=== PATIENT | female | born 1930 | race Caucasian/White ===

== ENCOUNTER 2016-03-13 10:25 | Emergency (ER) | payer MEDICARE, BC ==
[2016-03-13] MEDS ORDERED: SODIUM CHLORIDE 0.9% 500 ML IV STA (10:57)
[2016-03-13] MEDS ORDERED: SODIUM CHLORIDE 0.9% 1,000 ML IV STA (10:57)
--- NOTE | 2016-03-13 11:00 | ED ---
General Adult HPI - General Chief complaint: Weakness Stated complaint: weakness Time Seen by Provider: 03/13/16 10:46 Source: patient, RN notes reviewed Mode of arrival: wheelchair Limitations: no limitations - History of Present Illness Initial comments: Patient is a pleasant 85-year-old female presenting to the emergency Department complaining of generalized weakness. Symptoms have progressed over the past week. Patient is on radiation treatment for nasal cancer. Patient had to interrupt this secondary to depth involvement abuse infection and has not been eating well for the past week. Patient does admit to feeling somewhat generally weak all over. Patient went in to resume her treatments today and was told her blood pressure was low and advised to come to the emergency department. No confusion. No isolated area of weakness. - Related Data Home Medications Medication Instructions Recorded Confirmed Atorvastatin Calcium [Lipitor] 20 mg PO HS 03/13/16 03/13/16 Fluconazole [Diflucan] 100 mg PO DAILY 03/13/16 03/13/16 Levothyroxine Sodium [Synthroid] 25 mcg PO DAILY 03/13/16 03/13/16 Multivitamins, Thera [Multivitamin] 1 tab PO DAILY 03/13/16 03/13/16 Allergies Allergy/AdvReac Type Severity Reaction Status Date / Time No Known Allergies Allergy Verified 03/13/16 10:43 Review of Systems ROS Statement: Those systems with pertinent positive or pertinent negative responses have been documented in the HPI. ROS Other: All systems not noted in ROS Statement are negative. Constitutional: Denies: fever Eyes: Denies: eye pain ENT: Denies: ear pain Respiratory: Denies: cough, dyspnea Cardiovascular: Denies: chest pain Endocrine: Reports: fatigue Gastrointestinal: Denies: abdominal pain Genitourinary: Denies: dysuria Musculoskeletal: Denies: back pain Skin: Denies: rash Neurological: Reports: weakness Past Medical History Past Medical History: Cancer, Hypertension, Thyroid Disorder History of Any Multi-Drug Resistant Organisms: None Reported Past Surgical History: Hernia Repair Past Psychological History: No Psychological Hx Reported Smoking Status: Former smoker Past Alcohol Use History: None Reported Past Drug Use History: None Reported General Exam Limitations: no limitations General appearance: alert, in no apparent distress Head exam: Present: atraumatic Eye exam: Present: normal appearance, PERRL ENT exam: Present: other (Mild white patches on the tongue.) Neck exam: Present: normal inspection Respiratory exam: Present: normal lung sounds bilaterally Cardiovascular Exam: Present: regular rate, normal rhythm GI/Abdominal exam: Present: soft. Absent: tenderness Extremities exam: Present: normal inspection Neurological exam: Present: alert, CN II-XII intact. Absent: motor sensory deficit Expanded Speech: Present: fluid speech Cranial nerves: EOM's Intact: Normal Motor strength exam: RUE: 5, LUE: 5, RLE: 5, LLE: 5 Eye Response: (4) open spontaneously Motor Response: (6) obeys commands Verbal Response: (5) oriented Psychiatric exam: Present: normal affect, normal mood Skin exam: Absent: rash Course Vital Signs 03/13/16 03/13/16 03/13/16 10:27 11:10 11:50 Temperature 97.8 F Pulse Rate 94 90 Respiratory 20 18 Rate Blood Pressure 95/55 112/62 145/67 O2 Sat by Pulse 94 L 98 Oximetry EKG Findings - EKG Comments: EKG Findings:: Normal sinus rhythm at 80. KS 186. QRS 88. QT 414. QTC 477. Normal axis. Normal QRS. Normal ST-T. Medical Decision Making - Medical Decision Making Patient reevaluated and feels much better. Patient requesting discharge home. Patient updated on results and need for follow-up. Case was discussed in detail with her radiation oncologist, Dr. Lizarraga who is okay with discharge of patient. - Lab Data Result diagrams: 03/13/16 11:05 03/13/16 11:05 Lab Results 03/13/16 03/13/16 03/13/16 Range/Units 11:05 11:05 11:05 WBC 4.9 (3.8-10.6) k/uL RBC 3.55 L (3.80-5.40) m/uL Hgb 10.8 L (11.4-16.0) gm/dL Hct 34.0 (34.0-46.0) % MCV 95.7 (80.0-100.0) fL MCH 30.5 (25.0-35.0) pg MCHC 31.9 (31.0-37.0) g/dL RDW 12.8 (11.5-15.5) % Plt Count 241 (150-450) k/uL Neutrophils % 85 % Lymphocytes % 6 % Monocytes % 7 % Eosinophils % 0 % Basophils % 1 % Neutrophils # 4.1 (1.3-7.7) k/uL Lymphocytes # 0.3 L (1.0-4.8) k/uL Monocytes # 0.3 (0-1.0) k/uL Eosinophils # 0.0 (0-0.7) k/uL Basophils # 0.0 (0-0.2) k/uL PT (9.0-12.0) sec INR (<1.1) APTT (22.0-30.0) sec Sodium 141 (137-145) mmol/L Potassium 4.1 (3.5-5.1) mmol/L Chloride 99 (98-107) mmol/L Carbon Dioxide 30 (22-30) mmol/L Anion Gap 12 mmol/L BUN 35 H (7-17) mg/dL Creatinine 1.88 H (0.52-1.04) mg/dL Est GFR (MDRD) Af Amer 31 (>60 ml/min/1.73 sqM) Est GFR (MDRD) Non-Af 26 (>60 ml/min/1.73 sqM) Glucose 101 H (74-99) mg/dL Calcium 9.9 (8.4-10.2) mg/dL Phosphorus 4.2 (2.5-4.5) mg/dL Magnesium 1.7 (1.6-2.3) mg/dL Total Bilirubin 0.5 (0.2-1.3) mg/dL AST 26 (14-36) U/L ALT 31 (9-52) U/L Alkaline Phosphatase 60 (38-126) U/L Total Creatine Kinase 58 (30-135) U/L CK-MB (CK-2) 2.5 H* (0.0-2.4) ng/mL CK-MB (CK-2) Rel Index 4.3 Troponin I 0.015 (0.000-0.034) ng/mL Total Protein 6.6 (6.3-8.2) g/dL Albumin 3.3 L (3.5-5.0) g/dL Urine Color Urine Appearance (Clear) Urine pH (5.0-8.0) Ur Specific Hyder (1.001-1.035) Urine Protein (Negative) Urine Glucose (UA) (Negative) Urine Ketones (Negative) Urine Blood (Negative) Urine Nitrate (Negative) Urine Bilirubin (Negative) Urine Urobilinogen (<2.0) mg/dL Ur Leukocyte Esterase (Negative) Urine RBC (0-5) /hpf Urine WBC (0-5) /hpf Ur Squamous Epith Cells (0-4) /hpf Hyaline Casts (0-2) /lpf Urine Mucus (None) /hpf 03/13/16 03/13/16 Range/Units 11:05 11:40 WBC (3.8-10.6) k/uL RBC (3.80-5.40) m/uL Hgb (11.4-16.0) gm/dL Hct (34.0-46.0) % MCV (80.0-100.0) fL MCH (25.0-35.0) pg MCHC (31.0-37.0) g/dL RDW (11.5-15.5) % Plt Count (150-450) k/uL Neutrophils % % Lymphocytes % % Monocytes % % Eosinophils % % Basophils % % Neutrophils # (1.3-7.7) k/uL Lymphocytes # (1.0-4.8) k/uL Monocytes # (0-1.0) k/uL Eosinophils # (0-0.7) k/uL Basophils # (0-0.2) k/uL PT 11.6 (9.0-12.0) sec INR 1.2 (<1.1) APTT 22.9 (22.0-30.0) sec Sodium (137-145) mmol/L Potassium (3.5-5.1) mmol/L Chloride (98-107) mmol/L Carbon Dioxide (22-30) mmol/L Anion Gap mmol/L BUN (7-17) mg/dL Creatinine (0.52-1.04) mg/dL Est GFR (MDRD) Af Amer (>60 ml/min/1.73 sqM) Est GFR (MDRD) Non-Af (>60 ml/min/1.73 sqM) Glucose (74-99) mg/dL Calcium (8.4-10.2) mg/dL Phosphorus (2.5-4.5) mg/dL Magnesium (1.6-2.3) mg/dL Total Bilirubin (0.2-1.3) mg/dL AST (14-36) U/L ALT (9-52) U/L Alkaline Phosphatase (38-126) U/L Total Creatine Kinase (30-135) U/L CK-MB (CK-2) (0.0-2.4) ng/mL CK-MB (CK-2) Rel Index Troponin I (0.000-0.034) ng/mL Total Protein (6.3-8.2) g/dL Albumin (3.5-5.0) g/dL Urine Color Yellow Urine Appearance Cloudy H (Clear) Urine pH 6.0 (5.0-8.0) Ur Specific Hyder 1.012 (1.001-1.035) Urine Protein 1+ H (Negative) Urine Glucose (UA) Negative (Negative) Urine Ketones Trace H (Negative) Urine Blood Negative (Negative) Urine Nitrate Negative (Negative) Urine Bilirubin Negative (Negative) Urine Urobilinogen <2.0 (<2.0) mg/dL Ur Leukocyte Esterase Moderate H (Negative) Urine RBC 2 (0-5) /hpf Urine WBC 11 H (0-5) /hpf Ur Squamous Epith Cells 1 (0-4) /hpf Hyaline Casts 33 H (0-2) /lpf Urine Mucus Rare H (None) /hpf - Radiology Data Radiology results: image reviewed (Chest x-ray shows chronic changes without acute abnormality.) Disposition Clinical Impression: Dehydration Disposition: HOME SELF-CARE Condition: Stable Instructions: Dehydration (ED) Additional Instructions: Please follow-up with your primary care physician and Dr. Lizarraga this week. Have them review urine culture results and discuss whether or not antibiotics would be needed. Return for weakness, low blood pressure, worsening symptoms or other concerns. Referrals: Jessica Goodman MD [Primary Care Provider] - 1-2 days Lowell Lizarraga MD [STAFF PHYSICIAN] - 1-2 days
--- NOTE | 2016-03-13 11:25 | XR ---
EXAMINATION TYPE: XR chest 2V DATE OF EXAM: 03/13/2016 11:21 AM HISTORY: Shortness of breath. COMPARISON: March 12, 2015 TECHNIQUE: Single view of the chest is submitted. FINDINGS: Demonstrated are scattered senescent parenchymal change. There is no evidence for focal infiltrate. The heart is stable. Hilar and mediastinal structures are within normal limits. Degenerative changes are seen of the dorsal spine. There is a large fixed hiatal hernia. IMPRESSION: 1. Chronic changes without evidence for acute pulmonary disease.
[2016-03-13 11:31] LABS: Basophils % (A) 1 %; CH 30.9; CHCM 32.5; Eosinophils % (A) 0 %; HDW 2.33; HGB 10.8 gm/dL (11.4-16.0); Luc % (Auto) 2; Lymphocytes # (A) 0.3 k/uL (1.0-4.8); Lymphocytes % (A) 6 %; MCH 30.5 pg (25.0-35.0); MCHC 31.9 g/dL (31.0-37.0); MCV 95.7 fL (80.0-100.0); Mean Platelet Volume 7.6; Monocytes # (A) 0.3 k/uL (0-1.0); Monocytes % (A) 7 %; Neutrophils # (A) 4.1 k/uL (1.3-7.7); Neutrophils % (A) 85 %; RBC 3.55 m/uL (3.80-5.40); RDW 12.8 % (11.5-15.5); WBC 4.9 k/uL (3.8-10.6)
[2016-03-13 11:41] LABS: Calcium 9.9 mg/dL (8.4-10.2); Magnesium 1.7 mg/dL (1.6-2.3); Phosphorous 4.2 mg/dL (2.5-4.5); Potassium 4.1 mmol/L (3.5-5.1); Total Bilirubin 0.5 mg/dL (0.2-1.3); Total Protein 6.6 g/dL (6.3-8.2)
[2016-03-13 11:45] LABS: INR 1.2 (<1.1); Partial Thromboplastin Time 22.9 sec (22.0-30.0); Prothrombin Time 11.6 sec (9.0-12.0)
[2016-03-13 11:51] VITALS: RESP 18
[2016-03-13 11:58] LABS: Troponin I 0.015 ng/mL (0.000-0.034)
[2016-03-13 12:01] LABS: Creatine Kinase MB 2.5 ng/mL (0.0-2.4)
[2016-03-13 12:08] LABS: Appearance,Urine Cloudy (Clear); Bilirubin,Urine Negative (Negative); Glucose,Urine (UA) Negative (Negative); Ketones,Urine Trace (Negative); Leukocyte Esterase,Urine Moderate (Negative); Mucus,Urine Rare /hpf; Nitrite,Urine Negative (Negative); Particle Count 8442; Protein,Urine 1+ (Negative); RBC,Urine 2 /hpf (0-5); Specific Gravity,Urine 1.012 (1.001-1.035); Squamous Epithelial Cell,Urine 1 /hpf (0-4); UA Billing (MACRO vs. MICRO) MICRO; Urobilinogen,Urine <2.0 mg/dL (<2.0); WBC,Urine 11 /hpf (0-5)
[2016-03-13 13:31] VITALS: BP 168/76; PULSE 80; TEMP 97.3
== END 2016-03-13 13:31 | disposition home or self-care (01) ==
LOC: EC 10:25
DX: E86.0 Dehydration (principal); I10 Essential (primary) hypertension; E07.9 Disorder of thyroid, unspecified; Z85.22 Personal history of malignant neoplasm of nasal cavities, middle ear, and accessory sinuses; Z79.899 Other long term (current) drug therapy; Z87.891 Personal history of nicotine dependence; Z92.3 Personal history of irradiation
CPT/HCPCS: 36415; 71020; 80053; 81001; 82550; 82553; 83735; 84100; 84484; 85025; 85610; 85730; 87086; 93005; 96360; 96361; 99285

== ENCOUNTER → 2016-04-22 | Outpatient (CLI) | payer MEDICARE, BC ==
--- NOTE | 2016-04-23 11:54 | PE ---
Nuclear medicine PET/CT HISTORY: Epps cell carcinoma Patient received 13.3 mCi F-18 FDG intravenously and delayed scanning performed, whole-body scanning was performed and exam correlated to prior CT chest abdomen and pelvis 04 January 2016, CT soft tiss ue neck same date FINDINGS: Head and neck: Muscular uptake is present posteriorly. There is a focus of mildly elevated activity d eep to the sternocleidomastoid muscle on the left however this is felt likely to be vascular rather t shine representing adenopathy. Previously described submandibular adenopathy on the right is no longer evident. There is some dental uptake suspected on the right. CHEST: There is no evident mass. No adenopathy or associated hypermetabolic uptake. Large hiatal josé miguel ia present. It contains stomach, colon, portion of pancreas. There are coronary artery calcifications . Ascending aorta measures 4 cm. Posterior chest shows some probable muscular uptake. Abdomen pelvis: No evident retroperitoneal adenopathy. Infrarenal abdominal aorta is aneurysmal at 3. 3 cm. Colonic uptake is thought likely to be physiologic. No evident adenopathy or suspicious hyperme tabolic uptake. Osseous structures show degenerative changes. Lower extremities are unremarkable. Only muscular uptak e is noted. IMPRESSION: Recurrence is not evident. Aneurysmal disease and additional findings above.
== END | disposition home or self-care (01) ==
LOC: RADPETMAIN 10:16
PROVIDERS: ATTEND Radiology Radiation Oncology
DX: C78.1 Secondary malignant neoplasm of mediastinum (principal)
CPT/HCPCS: 78815; A9552

== ENCOUNTER → 2016-07-29 | Outpatient (CLI) | payer MEDICARE, BC ==
--- NOTE | 2016-07-31 09:23 | PE ---
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 Delayed scanning performed from the skull base to t he mid thighs. Localization and attenuation correction CT scan was performed. Correlation to prior nuclear medicine PET/CT 04/22/2016 Neck and chest: There is no evident adenopathy. No lung mass. Large hiatal hernia is present with int rathoracic stomach, colon is also present within the hernia. No evident lung mass. Ill-defined subple ural densities are present possibly postinflammatory in the right upper lobe. No suspicious hypermeta bolic uptake. Inflammatory change present in the right maxillary sinus and possibly right maxilla, mu scular uptake noted incidentally. ABDOMEN: No evident liver mass. Infrarenal abdominal aorta measures approximately 4 cm and shows athe romatous change. No free fluid. Extensive diverticular change in the sigmoid colon, small focal area of uptake noted within a diverticulum likely inflammatory. No suspicious hypermetabolic uptake. Corti kristina cyst associated with the left kidney. Osseous structures show degenerative disc changes within the spine, shoulders and possibly left hand. No suspicious hypermetabolic uptake. IMPRESSION: Findings are similar to prior exam. Correlate for possible tooth decay in the right maxil la. No suspicious hypermetabolic uptake. Uptake within the diverticulum of the sigmoid colon likely i nflammatory or physiologic.
== END | disposition home or self-care (01) ==
LOC: RADPETMAIN 13:50
PROVIDERS: ATTEND Radiology Radiation Oncology
DX: C78.1 Secondary malignant neoplasm of mediastinum (principal); R94.8 Abnormal results of function studies of other organs and systems
CPT/HCPCS: 78815; A9552

== ENCOUNTER → 2016-11-04 | Outpatient (CLI) | payer MEDICARE, BC ==
--- NOTE | 2016-11-05 15:27 | PE ---
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 Images are reviewed on the computer in the coronal, a xial, and sagittal planes. Reconstructed rotating images are created on independent workstation and reviewed on the computer. A localization and attenuation correction CT is performed in conjunction with the PET scan. DLP: 279.13, 132.70 mGycm SCAN: Subsequent Blood glucose: 92 mg/dL Average Mediastinum SUV: 2.22 Average Liver SUV: 2.6 FINDINGS: NECK: No suspicious uptake THORAX: No suspicious uptake ABDOMEN: There is a 1.1 cm focal area of increased uptake within the soft tissue density in the left perinephric region. Image 145. This has an SUV value 1.5. A second larger nodules in the inferior lat eral perinephric region measuring 1.8 cm. Image 152. This has an SUV value of 4.9. PELVIS: There is a focal area of increased uptake in the iliopsoas region felt to more likely be rela damari to a visualization of the ureter. This has an SUV value of 3.8 and a iliac chain lymph node is co nsidered within the differential. Legs: There is increased uptake along the heel pad of the left lower extremity with an SUV value 1.85 . Correlate for infection or skin abnormalities. There is increased uptake diffusely through musculature on the left compared to the right. This may b e related to activity. This is an atypical and too extensive distribution for metastatic disease. OSSEOUS STRUCTURES: No suspicious uptake. LOCALIZATION CT: Diverticulosis is within the distal colon. There is a calcification in the left temp oral region. Hiatal hernia or gastric pull-through is present along the right azygoesophageal recess of the chest. This was present previously. There is a soft tissue nodule in the left perinephric posterior lateral region on the left measuring 1.1 cm. A second 1.8 cm nodule slightly more inferior. There is a 3.4 cm cyst on the mid posterior l eft kidney. COMPARISON: 1. The perinephric nodules on the left prior study, the lower nodule has increased in size over the i nterval and the upper nodule has developed over the interval. IMPRESSION: 1. Suspected developing left perinephric metastatic lesions. 2. Clinical correlation for skin changes within the left heel pad is recommended. This could be infec tious etiology.
== END | disposition home or self-care (01) ==
LOC: RADPETMAIN 11:02
PROVIDERS: ATTEND Radiology Radiation Oncology
DX: C78.1 Secondary malignant neoplasm of mediastinum (principal)
CPT/HCPCS: 78816; A9552

== ENCOUNTER → 2017-03-17 | Outpatient (CLI) | payer MEDICARE, BC | END | disposition home or self-care (01) | LOC: RADPETMAIN 13:32 | PROVIDERS: ATTEND Radiology Radiation Oncology | DX: Z53.9 Procedure and treatment not carried out, unspecified reason (principal) ==

== ENCOUNTER → 2017-03-24 | Outpatient (CLI) | payer MEDICARE, BC ==
--- NOTE | 2017-03-26 10:43 | PE ---
EXAMINATION TYPE: PET CT fusion skull to thigh DATE OF EXAM: 03/24/2017 COMPARISON: Most recent PET CT November 04, 2016 and older studies. HISTORY: Unknown primary malignancy of neck follow-up study after completing radiation treatment 2016 to face and neck. TECHNIQUE: Following the intravenous administration of 14.78 mCi of F-18 FDG, whole body images are performed from the skull base to the midthigh. Images are reviewed on the computer in the coronal, a xial, and sagittal planes. Reconstructed rotating images are created on independent workstation and reviewed on the computer. A localization and attenuation correction CT is performed in conjunction with the PET scan. SCAN: Subsequent Scan FINDINGS: SKULL BASE AND NECK: Exam is suboptimal as patient has marked exaggerated cervical curvature. There are persistent prominent left-sided neck lymph nodes, there is a subcentimeter lymph node axial image 19 with mild increased hypermetabolic uptake, max SUV is 2.75 on current study. There is persistent increase uptake along the posterior neck muscles, max SUV is 5.48 on the left. Finding presumed posti nflammatory. CHEST, MEDIASTINUM, AND HILAR REGION: There is symmetric increase uptake at level of greater trochant ers in both shoulders bilaterally. Lower thoracic paraspinal symmetric uptake is noted. No suspicious hypermetabolic uptake is clearly seen. ABDOMEN AND PELVIS: Increasing size hypermetabolic left retroperitoneal masses are noted. Largest is seen axial image 112 measuring 2.7 x 2.5 cm current study and measured 1.7 x 1.3 cm on prior study im age 89. On current study max SUV is 11.21. For reference there is superior lesion measuring 2.1 x 1. 8 cm on axial image 86 with max SUV of 5.85, on prior study there was 7 mm ametabolic lesion. No definitive new pelvic or groin adenopathy is seen currently. OSSEOUS STRUCTURES: No suspicious hypermetabolic uptake is seen in osseous structures. OTHER CT: There is persistent large hiatal hernia or intrathoracic stomach. Persistent cardiomegaly with coronary artery calcification which is noted marker for coronary artery disease. Ascending aorta measures up to 3.8 cm diameter axial image 62 unchanged from prior. Gallbladder is not visualized and may be surgically absent. There is stable 3.2 cm partially exophytic low dense simple cyst posteriorly upper to mid pole level Left kidney axial image 103. Sigmoid colonic diverticulosis is redemonstrated. Aneurysm of the infrarenal abdominal aorta measuring up to 3.4 cm transversely axial image 118 is not ed. IMPRESSION: Worsening left mid abdominal retroperitoneal adenopathy or metastatic disease with enlarg ing lesion showing increased hypermetabolic uptake noted. No convincing evidence of new metastatic di sease in the neck thorax or pelvis. EORTC response criteria: Progressive Metabolic Disease. Increase in MaxSUV > 25% Primary tumor response WHO category: PD - At least 20% increase in longest recordable dimension of tu mor
== END | disposition home or self-care (01) ==
LOC: RADPETMAIN 09:39
PROVIDERS: ATTEND Radiology Radiation Oncology
DX: C77.0 Secondary and unspecified malignant neoplasm of lymph nodes of head, face and neck (principal)
CPT/HCPCS: 78815; A9552

== ENCOUNTER → 2017-06-28 | Outpatient (CLI) | payer MEDICARE, BC ==
--- NOTE | 2017-06-28 14:18 | CT ---
EXAMINATION TYPE: CT abdomen wo con DATE OF EXAM: 06/28/2017 COMPARISON: 01/04/2016 CT and PET/CT March 24, 2018 HISTORY: Follow up to [facility], spots on kidney CT DLP: 134.[address] of the abdomen was performed given abnormal renal function testing. Examination of the solid and hollow viscera is limited given the lack of contrast. FINDINGS: LUNG BASES: No evidence for nodule. No evidence for infiltrate. Large fixed hiatal hernia again detec damari. LIVER/GB: The gallbladder is unremarkable. No space-occupying hepatic lesion. PANCREAS: No pancreatic mass identified. No inflammatory process seen. SPLEEN: No evidence for splenomegaly. No intrasplenic lesions seen. ADRENALS: No adrenal nodules identified. No evidence for thickening. KIDNEYS: Stable probable cyst posterior mid left kidney measuring 3.1 cm. No additional renal lesions seen. No nephrolithiasis. No hydronephrosis. BOWEL: Appendix has a normal appearance. No evidence of bowel obstruction. No inflammatory process. Lymph nodes: No evidence for adenopathy greater than 1 cm. Abdominal aorta: Atheromatous changes seen. Mild infrarenal abdominal aortic aneurysm. Genital organs: No significant abnormality. Other: Soft tissue mass adjacent to the spleen measures of 4.0 x 3.1 cm. Additional soft tissue mass adjacent to the left kidney measures 3.5 x 2.4 cm are both larger in size. An additional lesion adjac ent to the left renal lesion is unchanged at 1.4 cm maximal dimension. IMPRESSION: 1. Enlarging mass within the left upper quadrant adjacent to the spleen as well as adjacent to the le ft kidney. Simple nodule adjacent to the aforementioned left renal lesion is stable. No new mass is i dentified at this time. 2. Large fixed hiatal hernia. 3. Stable cystic lesion left kidney. 4. Infrarenal abdominal aortic aneurysm.
== END | disposition home or self-care (01) ==
LOC: RADCTMAIN 12:42
PROVIDERS: ATTEND Radiology Radiation Oncology
DX: I71.4 Abdominal aortic aneurysm, without rupture (principal); N28.1 Cyst of kidney, acquired; K44.9 Diaphragmatic hernia without obstruction or gangrene; C7B.1 Secondary Merkel cell carcinoma; C78.1 Secondary malignant neoplasm of mediastinum; N28.9 Disorder of kidney and ureter, unspecified
CPT/HCPCS: 74150; 82565; 84520

== ENCOUNTER 2018-08-15 09:04 | Inpatient (IN) | payer MEDICARE, BC ==
[2018-08-15] MEDS ORDERED: SODIUM CHLORIDE 0.9% 500 ML 500 ML IV STA (09:51)
[2018-08-15] MEDS ORDERED: GELATIN SPONGE,ABSORB (LARGE) 1 EACH SPONGE TOPICAL STA (09:51)
[2018-08-15 10:23] LABS: Basophils % (A) 0 %; Eosinophils % (A) 0 %; HCT 34.9 % (34.0-46.0); HGB 11.2 gm/dL (11.4-16.0); Hypochromasia Slight; Lymphocytes # (A) 0.8 k/uL (1.0-4.8); Lymphocytes % (A) 6 %; MCH 31.3 pg (25.0-35.0); MCHC 32.1 g/dL (31.0-37.0); MCV 97.5 fL (80.0-100.0); Mean Platelet Volume 7.6; Monocytes # (A) 0.6 k/uL (0-1.0); Monocytes % (A) 4 %; Neutrophils # (A) 11.8 k/uL (1.3-7.7); Neutrophils % (A) 88 %; Platelet Count 162 k/uL (150-450); RBC 3.58 m/uL (3.80-5.40); RDW 13.6 % (11.5-15.5); WBC 13.4 k/uL (3.8-10.6)
[2018-08-15 10:33] LABS: Albumin 3.9 g/dL (3.5-5.0); Potassium 3.9 mmol/L (3.5-5.1); Total Protein 7.1 g/dL (6.3-8.2)
[2018-08-15 10:34] LABS: Magnesium 2.3 mg/dL (1.6-2.3); Total Bilirubin 0.6 mg/dL (0.2-1.3)
[2018-08-15 10:38] LABS: Prothrombin Time 10.8 sec (9.0-12.0)
--- NOTE | 2018-08-15 10:56 | ED ---
General Adult HPI <ShayanUday - Last Filed: 08/15/18 14:22> - General Source: patient, EMS, RN notes reviewed Mode of arrival: EMS Limitations: no limitations <Chinedu Bridges - Last Filed: 08/15/18 14:30> - General Chief complaint: Fall Stated complaint: Fall, Weakness Time Seen by Provider: 08/15/18 09:14 - History of Present Illness Initial comments: Jennifer is an 88-year-old female presenting to the emergency department for a chief complaint of weakness and falls. Patient has a history of metastasis skin cancer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 27 radiation treatments for a spot on her back. These were ultimately stopped 2 years ago. For the past several months patient has had a mass on her right breast and is currently in the process of having it evaluated. Patient has been very weak for the past several weeks. Family is very concerned about this. States that they have been arguing patient that she cannot live alone. Daughter states that she went over to the house today and found patient on the floor beside her bed. Patient states she remembers falling out of the bed. States she was using her cane when it slipped and she fell onto the ground and was unable to get herself up. Daughter states that she had to pick her up off the floor. Patient is complaining of right shoulder pain. Does not believe she hit her head. No blood thinners.Patient has no other complaints at this time including shortness of breath, chest pain, abdominal pain, nausea or vomiting, headache, or visual changes. (Chinedu Bridges) - Related Data Home Medications Medication Instructions Recorded Confirmed Multivitamins, Thera [Multivitamin] 1 tab PO DAILY 03/13/16 08/15/18 Levothyroxine Sodium [Synthroid] 175 mcg PO DAILY 08/15/18 08/15/18 Allergies Allergy/AdvReac Type Severity Reaction Status Date / Time No Known Allergies Allergy Verified 08/15/18 14:24 Review of Systems ROS Other: All systems not noted in ROS Statement are negative. <Uday Downey - Last Filed: 08/15/18 14:22> ROS Other: All systems not noted in ROS Statement are negative. <Chinedu Bridges - Last Filed: 08/15/18 14:30> ROS Statement: Those systems with pertinent positive or pertinent negative responses have been documented in the HPI. Past Medical History Past Medical History: Cancer, Hypertension, Thyroid Disorder History of Any Multi-Drug Resistant Organisms: None Reported Past Surgical History: Hernia Repair Past Psychological History: No Psychological Hx Reported Smoking Status: Former smoker Past Alcohol Use History: None Reported Past Drug Use History: None Reported <Chinedu Bridges - Last Filed: 08/15/18 14:30> General Exam Limitations: no limitations General appearance: alert, in no apparent distress Head exam: Present: atraumatic, normocephalic, normal inspection Eye exam: Present: normal appearance, PERRL, EOMI. Absent: scleral icterus, conjunctival injection, periorbital swelling ENT exam: Present: normal exam, mucous membranes moist Neck exam: Present: normal inspection, full ROM. Absent: tenderness, meningismus, lymphadenopathy Respiratory exam: Present: normal lung sounds bilaterally, other (Patient has a large mass noted to the right side of the chest.). Absent: respiratory distress, wheezes, rales, rhonchi, stridor Cardiovascular Exam: Present: regular rate, normal rhythm, normal heart sounds. Absent: systolic murmur, diastolic murmur, rubs, gallop, clicks GI/Abdominal exam: Present: soft, normal bowel sounds. Absent: distended, tenderness, guarding, rebound, rigid Back exam: Present: vertebral tenderness (Thoracic spine tenderness, no cervical or lumbar spine tenderness.). Absent: CVA tenderness (R), CVA tenderness (L), other (No significant ecchymosis or bruising noted.) Neurological exam: Present: alert, oriented X3, CN II-XII intact Psychiatric exam: Present: normal affect, normal mood <Chinedu Bridges - Last Filed: 08/15/18 14:30> - General Exam Comments Initial Comments: Patient is able to abduct and flex right shoulder to about 30. Radial pulse 2+ in the right upper extremity. No sign of ecchymosis or bruising. Capillary refill less than 2 seconds. Sensation intact in the right upper extremity. Top Printing Press Operator strength 5 out of 5. (Chinedu Bridges) Course <Uday Downey - Last Filed: 08/15/18 14:22> Vital Signs 08/15/18 08/15/18 09:10 12:17 Temperature 96.7 F L Pulse Rate 90 83 Respiratory 16 17 Rate Blood Pressure 144/82 166/90 O2 Sat by Pulse 94 L 93 L Oximetry - Reevaluation(s) Reevaluation #1: 08/15/18 14:22 PA supervision: I personally do a [id number] evaluation the patient family members. Patient does demonstrate weakness dehydration acute kidney injury as well as a large right chest wall mass. Case will be discussed with Dr. Aguilar. I do agree with the assessment and plan. (Uday Downey) EKG Findings - EKG Comments: EKG Findings:: Sinus rhythm, ventricular rate 89, IL interval 198, QTc 469 <Chinedu Bridges - Last Filed: 08/15/18 14:30> Medical Decision Making - Lab Data Result diagrams: 08/15/18 10:12 08/15/18 10:12 <Uday Downey - Last Filed: 08/15/18 14:22> - Lab Data Result diagrams: 08/15/18 10:12 08/15/18 10:12 <Chinedu Bridges - Last Filed: 08/15/18 14:30> - Medical Decision Making Jennifer is an 88 her old female presenting to the ER for a chief complaint of weakness and fall. Patient has a history of metastatic skin cancer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 multiple radiation treatments which were stopped 2 years ago. For the past several months patient has had a mass on her right breast that she is currently in the process of having evaluated. However over the past couple weeks patient's weakness has increased to the point where today she was unable to get out of bed and actually fell on the ground. Patient's daughter found her and was able to help her up. Patient did have some thoracic spine pain as well as right shoulder pain. X-ray of the thoracic spine shows exaggeration of thoracic kyphosis without acute osseous abnormality. Chest x-ray shows no acute pulmonary process. There is a soft tissue density overlying the right lung base anterior to the chest wall. X-ray of the right shoulder shows diffuse osteopenia with no acute fracture or dislocation.CBC is unremarkable. Hemoglobin is 11.2 which does seem to be chronic. Creatinine 2.38, patient does have a history of CKD. Patient's TSH is 17 states this has been high which they are aware of. Labs are otherwise unremarkable. However given the patient's degree of weakness and family's concern of taking patient home she will be admitted for weakness and possible placement. (Chinedu Bridges) - Lab Data Lab Results 08/15/18 08/15/18 08/15/18 Range/Units 10:12 10:12 10:12 WBC 13.4 H (3.8-10.6) k/uL RBC 3.58 L (3.80-5.40) m/uL Hgb 11.2 L (11.4-16.0) gm/dL Hct 34.9 (34.0-46.0) % MCV 97.5 (80.0-100.0) fL MCH 31.3 (25.0-35.0) pg MCHC 32.1 (31.0-37.0) g/dL RDW 13.6 (11.5-15.5) % Plt Count 162 (150-450) k/uL Neutrophils % 88 % Lymphocytes % 6 % Monocytes % 4 % Eosinophils % 0 % Basophils % 0 % Neutrophils # 11.8 H (1.3-7.7) k/uL Lymphocytes # 0.8 L (1.0-4.8) k/uL Monocytes # 0.6 (0-1.0) k/uL Eosinophils # 0.0 (0-0.7) k/uL Basophils # 0.0 (0-0.2) k/uL Hypochromasia Slight PT 10.8 (9.0-12.0) sec INR 1.0 (<1.2) APTT 21.0 L (22.0-30.0) sec Sodium 144 (137-145) mmol/L Potassium 3.9 (3.5-5.1) mmol/L Chloride 106 (98-107) mmol/L Carbon Dioxide 26 (22-30) mmol/L Anion Gap 12 mmol/L BUN 57 H (7-17) mg/dL Creatinine 2.38 H (0.52-1.04) mg/dL Est GFR (CKD-EPI)AfAm 21 (>60 ml/min/1.73 sqM) Est GFR (CKD-EPI)NonAf 18 (>60 ml/min/1.73 sqM) Glucose 88 (74-99) mg/dL Calcium 10.0 (8.4-10.2) mg/dL Magnesium 2.3 (1.6-2.3) mg/dL Total Bilirubin 0.6 (0.2-1.3) mg/dL AST 61 H (14-36) U/L ALT 30 (9-52) U/L Alkaline Phosphatase 74 (38-126) U/L Troponin I (0.000-0.034) ng/mL Total Protein 7.1 (6.3-8.2) g/dL Albumin 3.9 (3.5-5.0) g/dL TSH 17.100 H (0.465-4.680) mIU/L Urine Color Urine Appearance (Clear) Urine pH (5.0-8.0) Ur Specific Pollock (1.001-1.035) Urine Protein (Negative) Urine Glucose (UA) (Negative) Urine Ketones (Negative) Urine Blood (Negative) Urine Nitrite (Negative) Urine Bilirubin (Negative) Urine Urobilinogen (<2.0) mg/dL Ur Leukocyte Esterase (Negative) Urine RBC (0-5) /hpf Urine WBC (0-5) /hpf Ur Squamous Epith Cells (0-4) /hpf Urine Bacteria (None) /hpf Hyaline Casts (0-2) /lpf Granular Casts (0) /lpf Urine Mucus (None) /hpf 08/15/18 08/15/18 Range/Units 10:12 11:34 WBC (3.8-10.6) k/uL RBC (3.80-5.40) m/uL Hgb (11.4-16.0) gm/dL Hct (34.0-46.0) % MCV (80.0-100.0) fL MCH (25.0-35.0) pg MCHC (31.0-37.0) g/dL RDW (11.5-15.5) % Plt Count (150-450) k/uL Neutrophils % % Lymphocytes % % Monocytes % % Eosinophils % % Basophils % % Neutrophils # (1.3-7.7) k/uL Lymphocytes # (1.0-4.8) k/uL Monocytes # (0-1.0) k/uL Eosinophils # (0-0.7) k/uL Basophils # (0-0.2) k/uL Hypochromasia PT (9.0-12.0) sec INR (<1.2) APTT (22.0-30.0) sec Sodium (137-145) mmol/L Potassium (3.5-5.1) mmol/L Chloride (98-107) mmol/L Carbon Dioxide (22-30) mmol/L Anion Gap mmol/L BUN (7-17) mg/dL Creatinine (0.52-1.04) mg/dL Est GFR (CKD-EPI)AfAm (>60 ml/min/1.73 sqM) Est GFR (CKD-EPI)NonAf (>60 ml/min/1.73 sqM) Glucose (74-99) mg/dL Calcium (8.4-10.2) mg/dL Magnesium (1.6-2.3) mg/dL Total Bilirubin (0.2-1.3) mg/dL AST (14-36) U/L ALT (9-52) U/L Alkaline Phosphatase (38-126) U/L Troponin I 0.021 (0.000-0.034) ng/mL Total Protein (6.3-8.2) g/dL Albumin (3.5-5.0) g/dL TSH (0.465-4.680) mIU/L Urine Color Yellow Urine Appearance Cloudy H (Clear) Urine pH 5.5 (5.0-8.0) Ur Specific Pollock 1.020 (1.001-1.035) Urine Protein 1+ H (Negative) Urine Glucose (UA) Negative (Negative) Urine Ketones Trace H (Negative) Urine Blood Moderate H (Negative) Urine Nitrite Negative (Negative) Urine Bilirubin Negative (Negative) Urine Urobilinogen <2.0 (<2.0) mg/dL Ur Leukocyte Esterase Trace H (Negative) Urine RBC 1 (0-5) /hpf Urine WBC 2 (0-5) /hpf Ur Squamous Epith Cells <1 (0-4) /hpf Urine Bacteria Rare H (None) /hpf Hyaline Casts 4 H (0-2) /lpf Granular Casts 4 (0) /lpf Urine Mucus Rare H (None) /hpf Disposition <Uday Downey - Last Filed: 08/15/18 14:22> Is patient prescribed a controlled substance at d/c from ED?: No Time of Disposition: 13:42 <Chinedu Bridges - Last Filed: 08/15/18 14:30> Clinical Impression: Fall, Weakness Disposition: ADMITTED IP TO THIS HOSP Condition: Fair Referrals: Lupillo Aguilar MD [Primary Care Provider] - 1-2 days
--- NOTE | 2018-08-15 11:05 | XR ---
EXAMINATION TYPE: XR chest 2V DATE OF EXAM: 08/15/2018 COMPARISON: 03/13/2016 INDICATION: Weakness, fall TECHNIQUE: Frontal and lateral views of the chest are obtained. FINDINGS: The heart size is normal. The pulmonary vasculature is normal. The lungs are clear. A "tumor" is reported over the right lung. This could correlate with a large op acity on this film. IMPRESSION: 1. No acute pulmonary process. 2. Soft tissue density overlying the right lung base anterior to the chest wall lateral projection. 3. Senile emphysematous change
--- NOTE | 2018-08-15 11:07 | XR ---
EXAMINATION TYPE: XR thoracic spine complete DATE OF EXAM: 08/15/2018 COMPARISON: None HISTORY: Pain upper back fall TECHNIQUE: Two-view thoracic spine is obtained supplemental transthoracic swimmer's view FINDINGS: There is exaggeration of thoracic kyphosis in the upper thoracic spine. Vertebral body heig hts appear preserved as visualized. Some degenerative disc changes present. Right chest wall mass is again evident. IMPRESSION: 1. Exaggeration of thoracic kyphosis. No acute osseous abnormality is identified.
--- NOTE | 2018-08-15 11:13 | XR ---
EXAMINATION TYPE: XR shoulder complete RT DATE OF EXAM: 08/15/2018 COMPARISON: NONE HISTORY: Pain TECHNIQUE: Three views are submitted. FINDINGS: The osseous structures are intact. There is no acute fracture or dislocation. Diffuse osteopenia. Mi ld hypertrophic change of the AC joint. Chronic appearing rib deformities noted. Mild prominence of t he right hilum.. IMPRESSION: 1. Diffuse osteopenia with no acute fracture or dislocation. 2. Mild prominence of the right hilum. Correlate clinically.
[2018-08-15 12:09] LABS: Appearance,Urine Cloudy (Clear); Bacteria,Urine Rare /hpf; Bilirubin,Urine Negative (Negative); Blood,Urine Moderate (Negative); Color,Urine Yellow; Glucose,Urine (UA) Negative (Negative); Granular Casts,Urine 4 /lpf (0); Hyaline Casts,Urine 4 /lpf (0-2); Ketones,Urine Trace (Negative); Leukocyte Esterase,Urine Trace (Negative); Mucus,Urine Rare /hpf; Nitrite,Urine Negative (Negative); PH, Urine 5.5 (5.0-8.0); Protein,Urine 1+ (Negative); RBC,Urine 1 /hpf (0-5); Squamous Epithelial Cell,Urine <1 /hpf (0-4); Urobilinogen,Urine <2.0 mg/dL (<2.0); WBC,Urine 2 /hpf (0-5)
[2018-08-15] MEDS ORDERED: MORPHINE SULFATE 2 MG/ML SYRINGE IVP STA (13:43)
[2018-08-15] MEDS ORDERED: ACETAMINOPHEN TAB 325 MG TAB PO STA (13:51)
[2018-08-15] MEDS ORDERED: NALOXONE 0.4 MG/ML 1 ML VIAL IV PRN (14:26)
[2018-08-15] MEDS ORDERED: traMADol 50 MG TAB PO PRN (14:26)
[2018-08-15] MEDS ORDERED: ACETAMINOPHEN TAB 325 MG TAB PO PRN (14:26)
[2018-08-15] MEDS: SODIUM CHLORIDE 0.9% 1,000 ML IV SCH (14:40)
[2018-08-16] MEDS: LEVOTHYROXINE 75 MCG TAB PO SCH (06:08)
[2018-08-16] MEDS: LEVOTHYROXINE 100 MCG TAB PO SCH (06:08)
[2018-08-16] MEDS: SODIUM CHLORIDE 0.9% 1,000 ML IV SCH (06:09)
[2018-08-16 09:15] LABS: Calcium 9.7 mg/dL (8.4-10.2); Potassium 4.3 mmol/L (3.5-5.1)
[2018-08-16 09:32] LABS: Basophils % (A) 0 %; Eosinophils % (A) 0 %; HCT 33.3 % (34.0-46.0); HGB 10.4 gm/dL (11.4-16.0); Hypochromasia Marked; Lymphocytes # (A) 0.5 k/uL (1.0-4.8); Lymphocytes % (A) 6 %; MCH 31.4 pg (25.0-35.0); MCHC 31.1 g/dL (31.0-37.0); MCV 100.9 fL (80.0-100.0); Macrocytosis Slight; Mean Platelet Volume 7.9; Monocytes # (A) 0.5 k/uL (0-1.0); Monocytes % (A) 5 %; Neutrophils # (A) 7.6 k/uL (1.3-7.7); Neutrophils % (A) 87 %; Platelet Count 146 k/uL (150-450); RDW 13.8 % (11.5-15.5); WBC 8.8 k/uL (3.8-10.6)
--- NOTE | 2018-08-16 10:33 | P.GSHP ---
History of Present Illness H&P Date: 08/16/18 Chief Complaint: Mass right breast The patient is an 88-year-old white female who presented to the emergency room after falling at home. She now states that she has some right shoulder discomfort and some discomfort across her back. Consultation is obtained secondary to a mass noted in the right breast. The patient states is been present for 5 months. She denies any pain. She denies any fever or chills. She denies any trauma to that area. She has not had any drainage from this site. The patient does have a personal history of skin cancer having had cancer of the nose, right side of the face, and back, she received 27 radiation treatments for this. Family history: 1. Personal history of skin cancer 2. Patient had a PET scan done in March 2017 which revealed worsening mid abdominal retroperitoneal adenopathy or metastatic disease with enlarging lesion showing increased hypermetabolic uptake. This was secondary to a unknown primary malignancy of the neck. This was diagnosed in February 2016. 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 Social history: Smoke: Started at 19 and used to smoke a half pack per day, stopped in 1960 Alcohol: Negative Drugs: Negative - Constitutional Constitutional: Reports weight loss - EENT Eyes: denies blurred vision, denies pain Ears: deny: decreased hearing, tinnitus Ears, nose, mouth and throat: Reports hoarseness - Breasts Breasts: bilateral: as per HPI - Cardiovascular Comment: Aortic aneurysm Cardiovascular: Reports high blood pressure, Denies chest pain, Denies shortness of breath - Respiratory Comment: Former smoker - Gastrointestinal Gastrointestinal: Reports as per HPI - Genitourinary (Female) Genitourinary: Denies dysuria, Denies hematuria - Menstruation Menstruation: Reports postmenopausal - Musculoskeletal Comment: Kyphosis - Integumentary Comment: Skin cancer Integumentary: Reports as per HPI - Neurological Neurological: Reports weakness - Psychiatric Psychiatric: Reports depression - Endocrine Endocrine: Reports weight change - Hematologic/Lymphatic Comment: none - Allergic/Immunologic Allergic/Immunologic: Reports as per HPI Past Medical History Past Medical History: Cancer, Hypertension, Renal Disease, Thyroid Disorder, Vascular Disorder Additional Past Medical History / Comment(s): Polio at age 21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 dysphagia since, 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-had skin cancer removed from nose and 27 radiation treatments to her throat, 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 Past Anesthesia/Blood Transfusion Reactions: No Reported Reaction Smoking Status: Former smoker - Past Family History Father Additional Family Medical History / Comment(s): Father from a heat stroke at the age of 83 yrs. Mother Family Medical History: Asthma, COPD Additional Family Medical History / Comment(s): Mother of lung disease at the age of 58yrs. Medications and Allergies Home Medications Medication Instructions Recorded Confirmed Type Multivitamins, Thera [Multivitamin] 1 tab PO DAILY 03/13/16 08/15/18 History Levothyroxine Sodium [Synthroid] 175 mcg PO DAILY 08/15/18 08/15/18 History Allergies Allergy/AdvReac Type Severity Reaction Status Date / Time No Known Allergies Allergy Verified 08/15/18 14:24 Surgical - Exam Vital Signs Temp Pulse Resp BP Pulse Ox 96.7 F L 90 16 144/82 94 L 08/15/18 09:10 08/15/18 09:10 08/15/18 09:10 08/15/18 09:10 08/15/18 09:10 BMI 15.7 - General cachectic - Eyes normal ocular movement - ENT no hearing loss, poor senior living - Neck trachea midline - Respiratory Decreased breath sounds bilaterally at bases - Cardiovascular Rhythm: regular Heart Sounds: normal: S1, S2 - Abdomen Abdomen: soft, non tender, no guarding, no rigid, no rebound - Integumentary Patient with nevi none of concern at this time Patient had prior Henrietta cell cancer - Neurologic no disoriented, no combative - Musculoskeletal Laying in bed, week - Psychiatric oriented to time, oriented to person, oriented to place, speech is normal, memory intact Breast examination: Right breast: The right breast is largely replaced by a large fungating mass which measures approximately 15 cm in size. This is not fixed to the chest wall however is question that resection would be possible without a skin graft Right axilla: Shotty adenopathy Left breast: Multiple positional exam no dominant mass or nodule is of concern Left axilla: No adenopathy of concern Results - Labs 08/16/18 07:08/16/18 07: Abnormal Lab Results - Last 24 Hours (Table) 08/15/18 08/15/18 08/15/18 Range/Units 10:12 10:12 10:12 WBC 13.4 H (3.8-10.6) k/uL RBC 3.58 L (3.80-5.40) m/uL Hgb 11.2 L (11.4-16.0) gm/dL Hct (34.0-46.0) % MCV (80.0-100.0) fL Plt Count (150-450) k/uL Neutrophils # 11.8 H (1.3-7.7) k/uL Lymphocytes # 0.8 L (1.0-4.8) k/uL APTT 21.0 L (22.0-30.0) sec Chloride (98-107) mmol/L BUN 57 H (7-17) mg/dL Creatinine 2.38 H (0.52-1.04) mg/dL Glucose (74-99) mg/dL AST 61 H (14-36) U/L TSH 17.100 H (0.465-4.680) mIU/L Urine Appearance (Clear) Urine Protein (Negative) Urine Ketones (Negative) Urine Blood (Negative) Ur Leukocyte Esterase (Negative) Urine Bacteria (None) /hpf Hyaline Casts (0-2) /lpf Urine Mucus (None) /hpf 08/15/18 08/16/18 08/16/18 Range/Units 11:34 07: 07:19 WBC (3.8-10.6) k/uL RBC 3.30 L (3.80-5.40) m/uL Hgb 10.4 L (11.4-16.0) gm/dL Hct 33.3 L (34.0-46.0) % MCV 100.9 H (80.0-100.0) fL Plt Count 146 L (150-450) k/uL Neutrophils # (1.3-7.7) k/uL Lymphocytes # 0.5 L (1.0-4.8) k/uL APTT (22.0-30.0) sec Chloride 112 H (98-107) mmol/L BUN 47 H (7-17) mg/dL Creatinine 1.87 H (0.52-1.04) mg/dL Glucose 71 L (74-99) mg/dL AST (14-36) U/L TSH (0.465-4.680) mIU/L Urine Appearance Cloudy H (Clear) Urine Protein 1+ H (Negative) Urine Ketones Trace H (Negative) Urine Blood Moderate H (Negative) Ur Leukocyte Esterase Trace H (Negative) Urine Bacteria Rare H (None) /hpf Hyaline Casts 4 H (0-2) /lpf Urine Mucus Rare H (None) /hpf Diabetes panel 08/15/18 08/16/18 Range/Units 10:12 07: Sodium 144 144 (137-145) mmol/L Potassium 3.9 4.3 (3.5-5.1) mmol/L Chloride 106 112 H (98-107) mmol/L Carbon Dioxide 26 23 (22-30) mmol/L BUN 57 H 47 H (7-17) mg/dL Creatinine 2.38 H 1.87 H (0.52-1.04) mg/dL Glucose 88 71 L (74-99) mg/dL Calcium 10.0 9.7 (8.4-10.2) mg/dL AST 61 H (14-36) U/L ALT 30 (9-52) U/L Alkaline Phosphatase 74 (38-126) U/L Total Protein 7.1 (6.3-8.2) g/dL Albumin 3.9 (3.5-5.0) g/dL Thyroid panel 08/15/18 Range/Units 10:12 TSH 17.100 H (0.465-4.680) mIU/L Calcium panel 08/15/18 08/16/18 Range/Units 10:12 07:19 Calcium 10.0 9.7 (8.4-10.2) mg/dL Albumin 3.9 (3.5-5.0) g/dL Pituitary panel 08/15/18 08/16/18 Range/Units 10:12 07:19 Sodium 144 144 (137-145) mmol/L Potassium 3.9 4.3 (3.5-5.1) mmol/L Chloride 106 112 H (98-107) mmol/L Carbon Dioxide 26 23 (22-30) mmol/L BUN 57 H 47 H (7-17) mg/dL Creatinine 2.38 H 1.87 H (0.52-1.04) mg/dL Glucose 88 71 L (74-99) mg/dL Calcium 10.0 9.7 (8.4-10.2) mg/dL TSH 17.100 H (0.465-4.680) mIU/L Adrenal panel 08/15/18 08/16/18 Range/Units 10:12 07:19 Sodium 144 144 (137-145) mmol/L Potassium 3.9 4.3 (3.5-5.1) mmol/L Chloride 106 112 H (98-107) mmol/L Carbon Dioxide 26 23 (22-30) mmol/L BUN 57 H 47 H (7-17) mg/dL Creatinine 2.38 H 1.87 H (0.52-1.04) mg/dL Glucose 88 71 L (74-99) mg/dL Calcium 10.0 9.7 (8.4-10.2) mg/dL Total Bilirubin 0.6 (0.2-1.3) mg/dL AST 61 H (14-36) U/L ALT 30 (9-52) U/L Alkaline Phosphatase 74 (38-126) U/L Total Protein 7.1 (6.3-8.2) g/dL Albumin 3.9 (3.5-5.0) g/dL Assessment and Plan Assessment: Impression: 1. 88-year-old patient admitted following a fall related to weakness 2. Prior history of Henrietta cell carcinoma 3. Personal history of squamous cell carcinoma 4. Patient status post radiation therapy 5. 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 Abdominal aortic aneurysm by history 7. Renal disease by history 8. Diarrhea at times Plan: 1. 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 It is surgically resectable for local control depending on her medical status. In order to resect it may be necessary to do a skin graft. I'll discuss the case with her primary care doctor. Thank you for this consultation. Agnes Downey M.D.
[2018-08-16 14:41] VITALS: BMI 15.6
--- NOTE | 2018-08-16 15:15 | P.HPIM ---
History of Present Illness H&P Date: 08/16/18 Chief Complaint: Increasing weakness This is an 88-year-old female with history of cancer; PET scan reporting worsening midabdominal retroperitoneal adenopathy or metastatic disease with enlarging lesion showing increased hyper metallic uptake. Unknown primary malignancy of the neck with numerous radiation treatments to the throat, former smoker, hypertension, chronic kidney disease, hypothyroidism, vascular disease, polio with subsequent dysphasia, [place] and squamous cell cancers, large nondraining right chest/breast mass-state present for at least a year, falls and multiple other medical issues. Patient lives alone, apparently has been becoming progressively weaker, unable to get out of bed. Family discovered patient on floor. Patient reports she fell out of bed, while attempting to use her cane. Patient is not on blood thinners and denies hitting head. Large right chest/breast mass scheduled outpatient for evaluation. Complains of thoracic spi ne and right shoulder pain.EKG reporting sinus rhythm. Chest x-ray reporting nonacute, soft tissue density overlying right lung base anterior to chest wall lateral projection, emphysematous change. Shoulder x-ray reporting no acute fracture or dislocation, diffuse osteopenia with mild prominence of the right hilum dominance.Shoulder x-ray reporting exacerbation of thoracic kyphosis with no acute osseous abnormality. CBC unremarkable. TSH 17, states recent increase in levothyroxine approximately 2 weeks ago. Weight loss of 20-25 pounds over the last year with about 4-5 pounds over the last month. Creatinine 2.38, baseline 1.45. Gentle IV fluid hydration initiated with creatinine currently down to 1.87, BUN 47. Denies nausea vomiting , periodic diarrhea-none at this time. Denies abdominal pain .denies chest pain, palpitations or increased shortness of breath. Mild leukocytosis on admission, resolved . Vital signs stable.Admitted for falls, generalized weakness and possible placement. Surgery consulted regarding evaluation of large right chest/breast mass. Review of Systems ROS Other: All systems not noted in ROS Statement are negative. ROS Statement: Those systems with pertinent positive or pertinent negative responses have been documented in the HPI. 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 Past Anesthesia/Blood Transfusion Reactions: No Reported Reaction Smoking Status: Former smoker - Past Family History Father Additional Family Medical History / Comment(s): Father from a heat stroke at the age of 83 yrs. Mother Family Medical History: Asthma, COPD Additional Family Medical History / Comment(s): Mother of lung disease at the age of 58yrs. Medications and Allergies Home Medications Medication Instructions Recorded Confirmed Type Multivitamins, Thera [Multivitamin] 1 tab PO DAILY 03/13/16 08/15/18 History Levothyroxine Sodium [Synthroid] 175 mcg PO DAILY 08/15/18 08/15/18 History Allergies Allergy/AdvReac Type Severity Reaction Status Date / Time No Known Allergies Allergy Verified 08/15/18 14:24 Physical Exam Vitals: Vital Signs Temp Pulse Pulse Resp BP BP Pulse Ox 08/16/18 04:29 98.1 F 90 16 151/76 96 08/15/18 20:57 97.8 F 83 20 138/72 93 L 08/15/18 15:15 98 F 96 16 129/82 97 08/15/18 15:00 97.5 F L 89 16 169/80 99 08/15/18 14:50 98 F 96 16 129/82 97 08/15/18 12:17 83 17 166/90 93 L Intake and Output 08/15/18 08/16/18 08/16/18 22:59 06:59 14:59 Intake Total 225 600 Balance 225 600 Intake: Intake, IV Titration 225 600 Amount Sodium Chloride 0.9% 1, 225 600 000 ml @ 75 mls/hr IV . [id number] [facility] Rx#:[id number] Other: Voiding Method Bedpan Incontinent # Voids 1 PHYSICAL EXAM: VITAL SIGNS: As above GENERAL: Sitting up in bed, cachectic, weak ,no acute distress HEENT: Conjunctivae normal. eyes normal. NECK: No JVD. No thyroid enlargement. No LNs CARDIOVASCULAR: S1, S2 regular. No murmur RESPIRATION: Kyphosis .Breath sounds diminished in the bases. No rhonchi or crac kles. No bronchial breathing. ABDOMEN: Soft, nontender . No guarding. no masses palpable. No ascites, No hepatosplenomegaly.Bowel sounds heard. LEGS: No edema. no swelling PSYCHIATRY: Alert and oriented X3, mood and affect normal. NERVOUS SYSTEM: Cranial N 2-12 grossly normal. Moves all 4 limbs. Diffuse weakness ,No focal deficits. Strength and sensation grossly intact. Skin: Large right breast mass, right axilla adenopathy. Some nevi. Joints: No active swelling. No inflammation Lymphatic system. No LN neck axilla or groin. Results CBC & Chem 7: 08/16/18 07:19 08/16/18 07:19 Labs: Abnormal Lab Results - Last 24 Hours (Table) 08/15/18 08/15/18 08/15/18 Range/Units 10:12 10:12 10:12 WBC 13.4 H (3.8-10.6) k/uL RBC 3.58 L (3.80-5.40) m/uL Hgb 11.2 L (11.4-16.0) gm/dL Neutrophils # 11.8 H (1.3-7.7) k/uL Lymphocytes # 0.8 L (1.0-4.8) k/uL APTT 21.0 L (22.0-30.0) sec BUN 57 H (7-17) mg/dL Creatinine 2.38 H (0.52-1.04) mg/dL AST 61 H (14-36) U/L TSH 17.100 H (0.465-4.680) mIU/L Urine Appearance (Clear) Urine Protein (Negative) Urine Ketones (Negative) Urine Blood (Negative) Ur Leukocyte Esterase (Negative) Urine Bacteria (None) /hpf Hyaline Casts (0-2) /lpf Urine Mucus (None) /hpf 07/11/19 Range/Units 11:34 WBC (3.8-10.6) k/uL RBC (3.80-5.40) m/uL Hgb (11.4-16.0) gm/dL Neutrophils # (1.3-7.7) k/uL Lymphocytes # (1.0-4.8) k/uL APTT (22.0-30.0) sec BUN (7-17) mg/dL Creatinine (0.52-1.04) mg/dL AST (14-36) U/L TSH (0.465-4.680) mIU/L Urine Appearance Cloudy H (Clear) Urine Protein 1+ H (Negative) Urine Ketones Trace H (Negative) Urine Blood Moderate H (Negative) Ur Leukocyte Esterase Trace H (Negative) Urine Bacteria Rare H (None) /hpf Hyaline Casts 4 H (0-2) /lpf Urine Mucus Rare H (None) /hpf Thrombosis Risk Factor Assmnt - Choose All That Apply Any of the Below Risk Factors Present?: Yes Other Risk Factors: Yes Each Risk Factor Represents 2 Points: Malignancy Each Risk Factor Represents 3 Points: Age 75 years or older Other congenital or acquired thrombophilia - If yes, enter type in comment: No Thrombosis Risk Factor Assessment Total Risk Factor Score: 5 Thrombosis Risk Factor Assessment Level: High Risk Assessment and Plan Assessment: -Fall secondary to increasing generalized weakness,dehydration, acute renal failure. -Large right chest wall mass, possible malignancy -History of multiple cancers including [place] cell, squamous cell CA. Unknown primary malignancy of the neck,status post multiple radiation treatments.PET scan reporting worsening midabdominal retroperitoneal adenopathy or metastatic disease with enlarging lesion showing increased hyper metallic up take. -Moderate to severe malnutrition, reported weight loss of 20-25 pounds over the last year, 4-5 pounds over the last month, BMI 15.7 -Hypertension -Hypothyroidism -History of polio with subsequent dysphagia -History of AAA - Plan: Continue on current medication regime ,monitoring and symptomatic treatment. Home meds have been reviewed and resumed. Surgery has been consulted to evaluate right chest/breast mass. Social work/PT/OT consulted. Subacute rehab at discharge discussed with patient and daughter, both in agreement with. GI and DVT prophylaxis in place. Ensure supplements ordered, between meals and at bedtime. strict aspiration precautions .Close monitoring of renal function, hemoglobin with repeat labs ordered for a.m. prognosis guarded given multiple complex medical issues. The impression and plan of care has been dictated as directed. : I performed a history and examination of this patient, discussed the same with the dictator. I agree with the dictator's note ,documented as a scribe. Any additional findings or plans will be noted. Time taken: 35 minutes
[2018-08-16] MEDS ORDERED: IPRATROPIUM-ALBUTEROL 3 ML NEB INHALATION PRN (15:18)
[2018-08-16] MEDS: SYMBICORT 160-4.5 MCG INHALER INHALATION SCH ×2 (15:43→19:45)
[2018-08-16] MEDS: IPRATROPIUM-ALBUTEROL 3 ML NEB INHALATION SCH ×2 (15:44→19:46)
[2018-08-16] MEDS: MULTIVITAMINS, THERA 1 EACH TAB PO SCH (18:00)
[2018-08-17] MEDS: SODIUM CHLORIDE 0.9% 1,000 ML IV SCH ×2 (05:45→17:53)
[2018-08-17] MEDS: LEVOTHYROXINE 75 MCG TAB PO SCH (05:46)
[2018-08-17] MEDS: LEVOTHYROXINE 100 MCG TAB PO SCH (05:46)
[2018-08-17 08:00] LABS: Basophils % (A) 0 %; Eosinophils % (A) 0 %; HCT 37.5 % (34.0-46.0); HGB 11.1 gm/dL (11.4-16.0); Hypochromasia Marked; Lymphocytes # (A) 0.5 k/uL (1.0-4.8); Lymphocytes % (A) 4 %; MCH 30.8 pg (25.0-35.0); MCHC 29.5 g/dL (31.0-37.0); MCV 104.4 fL (80.0-100.0); Macrocytosis Slight; Mean Platelet Volume 8.5; Monocytes # (A) 0.5 k/uL (0-1.0); Monocytes % (A) 5 %; Neutrophils # (A) 10.3 k/uL (1.3-7.7); Neutrophils % (A) 90 %; Platelet Count 181 k/uL (150-450); RBC 3.59 m/uL (3.80-5.40); RDW 13.6 % (11.5-15.5); WBC 11.4 k/uL (3.8-10.6)
[2018-08-17 08:05] LABS: Calcium 9.9 mg/dL (8.4-10.2)
[2018-08-17] MEDS: MULTIVITAMINS, THERA 1 EACH TAB PO SCH (08:14)
[2018-08-17 08:15] LABS: Potassium 5.2 mmol/L (3.5-5.1)
--- NOTE | 2018-08-17 11:08 | P.PN ---
Subjective This is an 88-year-old female with history of cancer; PET scan reporting worsening midabdominal retroperitoneal adenopathy or metastatic disease with enlarging lesion showing increased hyper metallic uptake. 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 Patient lives alone, apparently has been becoming progressively weaker, unable to get out of bed. Family discovered patient on floor. Patient reports she fell out of bed, while attempting to use her cane. Patient is not on blood thinners and denies hitting head. Large right chest/breast mass scheduled outpatient for evaluation. Complains of thoracic spine and right shoulder pain.EKG reporting sinus rhythm. Chest x-ray reporting nonacute, soft tissue density overlying right lung base anterior to chest wall lateral projection, emphysematous change. Shoulder x-ray reporting no acute fracture or dislocation, diffuse osteopenia with mild prominence of the right hilum dominance.Shoulder x-ray reporting exacerbation of thoracic kyphosis with no acute osseous abnormality. CBC unremarkable. TSH 17, states recent increase in levothyroxine approximately 2 weeks ago. Weight loss of 20-25 pounds over the last year with about 4-5 pounds over the last month. Creatinine 2.38, baseline 1.45. Gentle IV fluid hydration initiated with creatinine currently down to 1.87, BUN 47. Denies nausea vomiting , periodic diarrhea-none at this time. Denies abdominal pain .denies chest pain, palpitations or increased shortness of breath. Mild leukocytosis on admission, resolved . Vital signs stable.Admitted for falls, generalized weakness and possible placement. Surgery consulted regarding evaluation of large right chest/breast mass. 08/17/2018: Daughter is now bedside. The patient is awake and alert. She wishes to go to rehabilitation and possibly deal with her chest mass in the future event. She lives alone. She denies any chest pains, pressures, or shortness breath. Daughter is unable to care for home due to her own medical conditions. Objective - Vital Signs Vital signs: Vital Signs Temp 97.5 F L 08/17/18 04:51 Pulse 100 08/17/18 04:51 Resp 20 08/17/18 04:51 BP 113/70 08/17/18 04:51 Pulse Ox 96 08/17/18 04:51 Intake & Output 08/16/18 08/17/18 08/17/18 18:59 06:59 18:59 Intake Total 600 Balance 600 Weight 45.359 kg Intake: Intake, IV Titration 600 Amount Sodium Chloride 0.9% 1, 600 000 ml @ 75 mls/hr IV . [id number] [facility] Rx#:[id number] Other: Voiding Method Bedpan Bedside Commode Incontinent Incontinent # Voids 1 2 - Exam GENERAL: Sitting up in bed, cachectic, weak ,no acute distress NECK: No JVD. No thyroid enlargement. No LNs CARDIOVASCULAR: S1, S2 regular. No murmur RESPIRATION: Kyphosis .Breath sounds diminished in the bases. No rhonchi or crackles. No bronchial breathing. ABDOMEN: Soft, nontender . No guarding. no masses palpable. No ascites, No hepatosplenomegaly.Bowel sounds heard. LEGS: No edema. no swelling PSYCHIATRY: Alert and oriented X3, mood and affect normal. NERVOUS SYSTEM: Cranial N 2-12 grossly normal. Moves all 4 limbs. Diffuse weakness ,No focal deficits. Strength and sensation grossly intact. Skin: Large right breast mass, right axilla adenopathy. Some nevi. Joints: No active swelling. No inflammation - Labs CBC & Chem 7: 08/17/18 06:43 08/17/18 06:43 Labs: Abnormal Lab Results - Last 24 Hours (Table) 08/17/18 08/17/18 Range/Units 06:43 06:43 WBC 11.4 H (3.8-10.6) k/uL RBC 3.59 L (3.80-5.40) m/uL Hgb 11.1 L (11.4-16.0) gm/dL MCV 104.4 H (80.0-100.0) fL MCHC 29.5 L (31.0-37.0) g/dL Neutrophils # 10.3 H (1.3-7.7) k/uL Lymphocytes # 0.5 L (1.0-4.8) k/uL Sodium 147 H (137-145) mmol/L Potassium 5.2 H (3.5-5.1) mmol/L Chloride 114 H (98-107) mmol/L Carbon Dioxide 20 L (22-30) mmol/L BUN 50 H (7-17) mg/dL Creatinine 1.78 H (0.52-1.04) mg/dL Assessment and Plan (1) Breast mass in female Current Visit: Yes Status: Acute Code(s): N63.0 - UNSPECIFIED LUMP IN UNSPECIFIED BREAST SNOMED Code(s): 91514068 (2) Personal history of [place] cell carcinoma Current Visit: Yes Status: Acute Code(s): Z85.821 - PERSONAL HISTORY OF JESSICA CELL CARCINOMA SNOMED Code(s): 373316940823331 (3) Dehydration Current Visit: Yes Status: Acute Code(s): E86.0 - DEHYDRATION SNOMED Code(s): 14587464 (4) History of poliomyelitis Current Visit: Yes Status: Acute Code(s): Z86.12 - PERSONAL HISTORY OF POLIOMYELITIS SNOMED Code(s): 148573763 (5) History of AAA (abdominal aortic aneurysm) repair Current Visit: Yes Status: Acute Code(s): Z98.890 - OTHER SPECIFIED POSTPROCEDURAL STATES SNOMED Code(s): 163188102 (6) Moderate protein malnutrition Current Visit: Yes Status: Acute Code(s): E44.0 - MODERATE PROTEIN-CALORIE MALNUTRITION SNOMED Code(s): 585831629 (7) Hypothyroidism Current Visit: Yes Status: Acute Code(s): E03.9 - HYPOTHYROIDISM, UNSPECIFIED SNOMED Code(s): 97065272 (8) Fall Current Visit: Yes Status: Acute Code(s): W19.XXXA - UNSPECIFIED FALL, INITIAL ENCOUNTER SNOMED Code(s): 6197730 (9) Weakness Current Visit: Yes Status: Acute Code(s): R53.1 - WEAKNESS SNOMED Code(s): 72691370 Plan: Repeat labs in a.m. for mild leukocytosis and hyperkalemia. Acute renal failure is improving. Continue gentle hydration at 75 mL an hour normal saline Continue her home medications. She'll be reevaluated in the next 24 hours. We'll plan placement for her on Sunday. Continue PT OT
[2018-08-17] MEDS: IPRATROPIUM-ALBUTEROL 3 ML NEB INHALATION SCH ×4 (11:31→20:13)
[2018-08-17] MEDS: SYMBICORT 160-4.5 MCG INHALER INHALATION SCH ×2 (11:31→20:13)
[2018-08-18] MEDS: LEVOTHYROXINE 100 MCG TAB PO SCH (05:24)
[2018-08-18] MEDS: LEVOTHYROXINE 75 MCG TAB PO SCH (05:25)
[2018-08-18] MEDS: SODIUM CHLORIDE 0.9% 1,000 ML IV SCH ×2 (05:25→12:29)
[2018-08-18 05:36] VITALS: BP 92/54; RESP 22; TEMP 98.3
[2018-08-18] MEDS: MULTIVITAMINS, THERA 1 EACH TAB PO SCH (07:27)
[2018-08-18] MEDS: IPRATROPIUM-ALBUTEROL 3 ML NEB INHALATION SCH ×4 (08:55→16:05)
[2018-08-18 11:12] VITALS: PULSE 110
[2018-08-18] MEDS: SYMBICORT 160-4.5 MCG INHALER INHALATION SCH (11:21)
[2018-08-18] MEDS ORDERED: MORPHINE CONC SOLN 10mg/0.5mL ORAL SYRG PO PRN (11:47)
--- NOTE | 2018-08-18 11:47 | P.PN ---
Subjective This is an 88-year-old female with history of cancer; PET scan reporting worsening midabdominal retroperitoneal adenopathy or metastatic disease with enlarging lesion showing increased hyper metallic uptake. 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 Patient lives alone, apparently has been becoming progressively weaker, unable to get out of bed. Family discovered patient on floor. Patient reports she fell out of bed, while attempting to use her cane. Patient is not on blood thinners and denies hitting head. Large right chest/breast mass scheduled outpatient for evaluation. Complains of thoracic spine and right shoulder pain.EKG reporting sinus rhythm. Chest x-ray reporting nonacute, soft tissue density overlying right lung base anterior to chest wall lateral projection, emphysematous change. Shoulder x-ray reporting no acute fracture or dislocation, diffuse osteopenia with mild prominence of the right hilum dominance.Shoulder x-ray reporting exacerbation of thoracic kyphosis with no acute osseous abnormality. CBC unremarkable. TSH 17, states recent increase in levothyroxine approximately 2 weeks ago. Weight loss of 20-25 pounds over the last year with about 4-5 pounds over the last month. Creatinine 2.38, baseline 1.45. Gentle IV fluid hydration initiated with creatinine currently down to 1.87, BUN 47. Denies nausea vomiting , periodic diarrhea-none at this time. Denies abdominal pain .denies chest pain, palpitations or increased shortness of breath. Mild leukocytosis on admission, resolved . Vital signs stable.Admitted for falls, generalized weakness and possible placement. Surgery consulted regarding evaluation of large right chest/breast mass. 08/17/2018: Daughter is now bedside. The patient is awake and alert. She wishes to go to rehabilitation and possibly deal with her chest mass in the future event. She lives alone. She denies any chest pains, pressures, or shortness breath. Daughter is unable to care for home due to her own medical conditions. 08/18/2018: Daughter and grandson are at bedside. Patient became unresponsive yesterday afternoon. Family wishes comfort care only. Objective - Vital Signs Vital signs: Vital Signs Temp 98.3 F 08/18/18 05:00 Pulse 88 08/18/18 09:12 Resp 22 08/18/18 08:30 BP 92/54 08/18/18 05:00 Pulse Ox 95 08/18/18 05:00 Intake & Output 08/17/18 08/18/18 08/18/18 18:59 06:59 18:59 Intake Total 20 Balance 20 Intake: Oral 20 Other: Voiding Method Bedside Commode Diaper Diaper Incontinent Incontinent Incontinent # Voids 1 1 - Labs CBC & Chem 7: 08/17/18 06:43 08/17/18 06:43 Assessment and Plan (1) Breast mass in female Current Visit: Yes Status: Acute Code(s): N63.0 - UNSPECIFIED LUMP IN UNSPECIFIED BREAST SNOMED Code(s): 73601873 (2) Personal history of [place] cell carcinoma Current Visit: Yes Status: Acute Code(s): Z85.821 - PERSONAL HISTORY OF JESSICA CELL CARCINOMA SNOMED Code(s): 861870869697138 (3) Dehydration Current Visit: Yes Status: Acute Code(s): E86.0 - DEHYDRATION SNOMED Code(s): 29068606 (4) History of poliomyelitis Current Visit: Yes Status: Acute Code(s): Z86.12 - PERSONAL HISTORY OF POLIOMYELITIS SNOMED Code(s): 015358363 (5) History of AAA (abdominal aortic aneurysm) repair Current Visit: Yes Status: Acute Code(s): Z98.890 - OTHER SPECIFIED POSTPROCEDURAL STATES SNOMED Code(s): 439795152 (6) Moderate protein malnutrition Current Visit: Yes Status: Acute Code(s): E44.0 - MODERATE PROTEIN-CALORIE MALNUTRITION SNOMED Code(s): 481556636 (7) Hypothyroidism Current Visit: Yes Status: Acute Code(s): E03.9 - HYPOTHYROIDISM, UNSPECIFIED SNOMED Code(s): 67235787 (8) Fall Current Visit: Yes Status: Acute Code(s): W19.XXXA - UNSPECIFIED FALL, INITIAL ENCOUNTER SNOMED Code(s): 1917212 (9) Weakness Current Visit: Yes Status: Acute Code(s): R53.1 - WEAKNESS SNOMED Code(s): 14788064 Plan: We'll discontinue any further laboratory studies. I'll discontinue oral medications at this time with the exception of ordering Roxanol and Ativan. Plan hospice if the patient continues to remain unresponsive
[2018-08-18] MEDS ORDERED: LORazepam 2 MG/ML INJ IV PRN (11:49)
[2018-08-18] MEDS ORDERED: HYDROmorphone 0.5 MG/0.5 ML SYRINGE IVP PRN (11:49)
[2018-08-18] MEDS ORDERED: LORazepam ORAL CONC 60 MG/30 ML BOTTLE PO PRN (11:51)
--- NOTE | 2018-08-20 10:16 | CDI ---
Documentation Clarification Form Date: 08/20/18 From: Luz Maria Velasco Phone: If questions call Kaylen Herrera @ [phone], Hours-8:30 am & 5 pm M- F Admit Date: 08/16/2018 3:43:00 PM Patient Name: Jennifer Melvin Visit Number: [id number] Discharge Date: 08/18/2018 4:10:00 PM ATTENTION: The Clinical Documentation Specialists (CDI) and [facility] Coding Staff appreciate your assistance in clarifying documentation. Please respond to the clarification below the line at the bottom and electronically sign. The CDI & [facility] Coding staff will review the response and follow-up if needed. Please note: Queries are made part of the Legal Health Record. If you have any questions, please contact the author of this message via ITS. Dr. Lupillo Aguilar Can you please dictate the /Discharge Summary and include the likely/preliminary cause of ? Thank you for your assistance. See D Summary MTDD
--- NOTE | 2018-09-03 12:42 | P.DS ---
Providers Date of admission: 08/16/18 15:43 Expected date of discharge: 08/18/18 Attending physician: Lupillo Aguilar Consults: 08/15/18 16:51 Consult Physician Routine Consulting Provider: Kylie Guzman Consult Reason/Comments: right breast mass Do you want consulting provider notified?: Yes Primary care physician: Lupillo Aguilar - Discharge Diagnosis(es) (1) Breast mass in female Status: Acute (2) Personal history of [place] cell carcinoma Status: Acute (3) Dehydration Status: Acute (4) History of poliomyelitis Status: Acute (5) History of AAA (abdominal aortic aneurysm) repair Status: Acute (6) Moderate protein malnutrition Status: Acute (7) Hypothyroidism Status: Acute (8) Fall Status: Acute (9) Weakness Status: Acute Hospital Course: This is an 88-year-old female with history of cancer; PET scan reporting worsening midabdominal retroperitoneal adenopathy or metastatic disease with enlarging lesion showing increased hyper metallic uptake. 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 Patient lives alone, apparently has been becoming progressively weaker, unable to get out of bed. Family discovered patient on floor. Patient reports she fell out of bed, while attempting to use her cane. Patient is not on blood thinners and denies hitting head. Large right chest/breast mass scheduled outpatient for evaluation. Complains of thoracic spine and right shoulder pain.EKG reporting sinus rhythm. Chest x-ray reporting nonacute, soft tissue density overlying right lung base anterior to chest wall lateral projection, emphysematous change. Shoulder x-ray reporting no acute fracture or dislocation, diffuse osteopenia with mild prominence of the right hilum dominance.Shoulder x-ray reporting exacerbation of thoracic kyphosis with no acute osseous abnormality. CBC unremarkable. TSH 17, states recent increase in levothyroxine approximately 2 weeks ago. Weight loss of 20-25 pounds over the last year with about 4-5 pounds over the last month. Creatinine 2.38, baseline 1.45. Gentle IV fluid hydration initiated with creatinine currently down to 1.87, BUN 47. Denies nausea vomiting , periodic diarrhea-none at this time. Denies abdominal pain .denies chest pain, palpitations or increased shortness of breath. Mild leukocytosis on admission, resolved . Vital signs stable.Admitted for falls, generalized weakness and possible placement. Surgery consulted regarding evaluation of large right chest/breast mass. 08/17/2018: Daughter is now bedside. The patient is awake and alert. She wishes to go to rehabilitation and possibly deal with her chest mass in the future event. She lives alone. She denies any chest pains, pressures, or shortness breath. Daughter is unable to care for home due to her own medical conditions. 08/18/2018: Daughter and grandson are at bedside. Patient became unresponsive yesterday afternoon. Family wishes comfort care only. addendum: Patient quietly. She been unresponsive, not taking any liquids. Staff reported some agonal breathing and then she passed quietly. Plan - Discharge Summary Discharge Rx Participant: No New Discharge Prescriptions: Discontinued Multivitamins, Thera [Multivitamin] 1 tab PO DAILY Levothyroxine Sodium [Synthroid] 175 mcg PO DAILY Discharge Disposition: - Preliminary Cause of Preliminary Cause of : Acute respiratory failure, dehydration
--- NOTE | 2018-09-04 14:12 | CDI ---
Documentation Clarification Form Date: 09/04/2018 2:08:46 PM From: Michelle Gruber RN, CCDS Email: [email or web address] Admit Date: 08/16/2018 3:43:00 PM Patient Name: Jennifer Melvin Visit Number: [id number] Discharge Date: 08/18/2018 4:10:00 PM ATTENTION: The Clinical Documentation Specialists (CDI) and [facility] Coding Staff appreciate your assistance in clarifying documentation. Please respond to the clarification below the line at the bottom and electronically sign. The CDI & [facility] Coding staff will review the response and follow-up if needed. Please note: Queries are made part of the Legal Health Record. If you have any questions, please contact the author of this message via ITS. Dr. Lupillo Aguilar Patient was admitted with acute renal failure, dehydration and weakness/falls. History of CKD History/Risk Factors: Cancer, CKD, HTN, hypothyroidism, fungating breast mass possible malignancy per surgery Clinical Indicators: weight loss, weakness Admission BUN/CR/GFR: 57/2.38/18 Patients Baseline CR: 1.45 Treatment: IVF In order to capture the severity of condition, please clarify if the condition signifies: CKD Stage 1 (GFR > 90) CKD Stage 2 (GFR 60-89) --->CKD Stage 3 (GFR 30-59) CKD Stage 4 (GFR 15-29) CKD Stage 5 (GFR <15) Other, please specify Unable to determine MTDD
--- NOTE | 2018-09-04 14:20 | CDI ---
Documentation Clarification Form Date: 09/04/2018 2:13:47 PM From: Michelle Gruber RN, CCDS Email: [email or web address] Admit Date: 08/16/2018 3:43:00 PM Patient Name: Jennifer Melvin Visit Number: [id number] Discharge Date: 08/18/2018 4:10:00 PM ATTENTION: The Clinical Documentation Specialists (CDI) and [facility] Coding Staff appreciate your assistance in clarifying documentation. Please respond to the clarification below the line at the bottom and electronically sign. The CDI & [facility] Coding staff will review the response and follow-up if needed. Please note: Queries are made part of the Legal Health Record. If you have any questions, please contact the author of this message via ITS. Dr. Lupillo Aguilar Patient was admitted with acute renal failure, dehydration and weakness/falls. History of CKD History/Risk Factors: Cancer, CKD, HTN, hypothyroidism, fungating breast mass possible malignancy per surgery Clinical Indicators: weight loss, weakness, UA was cloudy, showed bacteria, hyaline casts, granular casts and urine mucus, BP 92/54 Admission BUN/CR/GFR: 57/2.38/18 Patients Baseline CR: 1.45 Treatment: IVF, monitor labs In your professional opinion, can you please clarify if the condition can be further specified? Acute Renal Failure with Acute Tubular Necrosis Acute Renal Failure with other cause, please specify -->Unable to determine Other, please specify MTDD
== END 2018-08-18 16:10 | disposition expired | DRG 682 ==
LOC: EC 09:04 → 3NMEDONC 14:22 → OBSVTOIN 08-16 15:43 → 3NMEDONC 08-16 17:26
PROVIDERS: ADMIT Family Medicine; ATTEND Family Medicine
DX: N17.9 Acute kidney failure, unspecified (principal); J96.01 Acute respiratory failure with hypoxia; E44.0 Moderate protein-calorie malnutrition; C79.9 Secondary malignant neoplasm of unspecified site; R64 Cachexia; Z68.1 Body mass index [BMI] 19.9 or less, adult; C79.81 Secondary malignant neoplasm of breast; C78.6 Secondary malignant neoplasm of retroperitoneum and peritoneum; E86.0 Dehydration; Z66 Do not resuscitate; Z51.5 Encounter for palliative care; E87.5 Hyperkalemia; R13.10 Dysphagia, unspecified; N63.0 Unspecified lump in unspecified breast; R59.0 Localized enlarged lymph nodes; I12.9 Hypertensive chronic kidney disease with stage 1 through stage 4 chronic kidney disease, or unspecified chronic kidney disease; R53.1 Weakness; E03.9 Hypothyroidism, unspecified; B91 Sequelae of poliomyelitis; K44.9 Diaphragmatic hernia without obstruction or gangrene; C76.0 Malignant neoplasm of head, face and neck; M85.80 Other specified disorders of bone density and structure, unspecified site; N18.3 Chronic kidney disease, stage 3 (moderate); D72.829 Elevated white blood cell count, unspecified; M54.6 Pain in thoracic spine; M25.511 Pain in right shoulder; R32 Unspecified urinary incontinence; R19.7 Diarrhea, unspecified; M40.204 Unspecified kyphosis, thoracic region; Z79.890 Hormone replacement therapy; Z79.899 Other long term (current) drug therapy; Z87.891 Personal history of nicotine dependence; Z85.828 Personal history of other malignant neoplasm of skin; Z92.3 Personal history of irradiation; Z85.821 Personal history of Merkel cell carcinoma; Z85.89 Personal history of malignant neoplasm of other organs and systems; W06.XXXA Fall from bed, initial encounter; Z86.79 Personal history of other diseases of the circulatory system; Z98.42 Cataract extraction status, left eye; Z98.41 Cataract extraction status, right eye; Y92.032 Bedroom in apartment as the place of occurrence of the external cause; Z82.5 Family history of asthma and other chronic lower respiratory diseases
CPT/HCPCS: 36415; 71046; 72072; 80048; 80053; 81001; 83735; 84443; 84484; 85025; 85610; 85730; 93005; 94640; 96360; 96361; 99285